=== PATIENT | female | born 1990 ===

== ENCOUNTER → 2025-09-10 | Outpatient (CLI) | payer OTHER | LOC: LAB 17:30 → LAB SHORT 17:30 | DX: N13.30 Unspecified hydronephrosis (principal) | CPT/HCPCS: 87086 ==

== ENCOUNTER → 2025-09-19 | Outpatient (CLI) | payer OTHER | LOC: LAB 14:48 → LAB SHORT 14:48 | PROVIDERS: Student in an Organized Health Care Education/Training Program | DX: Z01.419 Encounter for gynecological examination (general) (routine) without abnormal findings (principal) | CPT/HCPCS: 87624; G0145 ==

== ENCOUNTER → 2025-11-08 | Outpatient (CLI) | payer OTHER | LOC: LAB 17:30 → LAB SHORT 17:30 | DX: N39.0 Urinary tract infection, site not specified (principal) | CPT/HCPCS: 87077; 87086; 87186 ==